=== PATIENT | female | born 1980 | race American Indian/Alaskan Native ===

== ENCOUNTER 2018-10-14 18:13 | Emergency (ER) | payer MEDICAID ==
--- NOTE | 2018-10-14 18:30 | Event Note ---
ED Screening Note Date of service: 10/14/18 Time: 18:26 ED Screening Note: This is a 38 y.o. F. that presents to the ER with vaginal bleeding and . No EMBEDDED SOFTWARE DESIGN ENGINEER care, 15 weeks gestation LMP 07/01/2018, A0 This initial assessment/diagnostic orders/clinical plan/treatment(s) is/are zavala bject to change based on patients health status, clinical progression and re- assessment by fellow clinical providers in the ED. Further treatment and workup at subsequent clinical providers discretion. Patient/guardian urged not to elope from the ED as their condition may be serious if not clinically assessed and managed. Initial orders include: Labs and OB US
[2018-10-14 19:01] LABS: Basophils % (Auto) 0.3 % (0.0-1.8); Eosinophils # (Auto) 0.7 K/mm3 (0.0-0.4); Eosinophils % (Auto) 6.3 % (0.0-4.3); Hemoglobin 11.3 gm/dl (10.1-14.3); Lymphocytes # (Auto) 1.5 K/mm3 (1.2-5.4); Lymphocytes % (Auto) 13.3 % (13.4-35.0); Mean Corpuscular HGB Conc 34 % (30-34); Mean Corpuscular Volume 82 fl (79-97); Monocytes # (Auto) 0.6 K/mm3 (0.0-0.8); Monocytes % (Auto) 5.4 % (0.0-7.3); Platelet Count 269 K/mm3 (140-440); Red Blood Count 4.04 M/mm3 (3.65-5.03); Red Cell Distribution Width 13.7 % (13.2-15.2)
[2018-10-14 19:25] LABS: Bacteria,Urine 1+ /HPF (Negative); Bilirubin,Urine NEG (Negative); Blood,Urine NEG (Negative); Color,Urine Yellow (Yellow); Mucus,Urine FEW /HPF; Protein,Urine <15 mg/dL mg/dL (Negative)
[2018-10-14] MEDS ORDERED: BENADRYL IV ONE (20:09)
[2018-10-14] MEDS ORDERED: NACL 0.9% 1000 ML 1,000 ML IV ONE (20:09)
[2018-10-14] MEDS ORDERED: REGLAN IV ONE (20:09)
--- NOTE | 2018-10-14 20:32 | Emergency Department Report ---
ED HPI - General Chief complaint: Vaginal Bleeding Stated complaint: /BLEEDING/HEADACHE Time Seen by Provider: 10/14/18 18:25 Source: patient Mode of arrival: Ambulatory Limitations: No Limitations - History of Present Illness Initial comments: Patient is a 38-year-old female presents the emergency room with complaints of vaginal spotting that occurred yesterday. she states she also had a mild headache today but it has improved. She denies any vaginal bleeding today. She denies any abdominal pain, dysuria, nausea, vomiting, vision changes, numbness, unilateral weakness. States initially she went to urgent care and was advised to be seen in the emergency room. Patient states her last menstrual cycle was July 01. She has not seen an ICE BAG ASSEMBLER and has received no care. she is not taking a vitamin. she denies any past medical history or allergies to occasions. She states 2 of her children were born premature otherwise she had no complications during her other pregnancies. /P:5/A:0 - Related Data Allergies Allergy/AdvReac Type Severity Reaction Status Date / Time No Known Allergies Allergy Unverified 10/14/18 18:16 ED Review of Systems ROS: Stated complaint: /BLEEDING/HEADACHE Other details as noted in HPI Comment: All other systems reviewed and negative ED Past Medical Hx - Past Medical History Previous Medical History?: Yes Additional medical history: Vaginal delivery x 5 - Surgical History Past Surgical History?: No - Social History Smoking Status: Current Some Day Smoker Substance Use Type: Marijuana ED Physical Exam - General Limitations: No Limitations General appearance: alert, in no apparent distress - Head Head exam: Present: atraumatic, normocephalic - Eye Eye exam: Present: normal appearance - ENT ENT exam: Present: mucous membranes moist - Respiratory Respiratory exam: Present: normal lung sounds bilaterally. Absent: respiratory distress, wheezes, rales, rhonchi, stridor, accessory muscle use, decreased breath sounds, prolonged expiratory - Cardiovascular Cardiovascular Exam: Present: regular rate, normal rhythm, normal heart sounds. Absent: systolic murmur, diastolic murmur, rubs, gallop - GI/Abdominal GI/Abdominal exam: Present: soft, normal bowel sounds. Absent: distended, tenderness, guarding, rebound, rigid - Back Exam Back exam: Absent: CVA tenderness (R), CVA tenderness (L) - Neurological Exam Neurological exam: Present: alert, oriented X3 - Psychiatric Psychiatric exam: Present: normal affect, normal mood - Skin Skin exam: Present: warm, dry, intact ED Course Vital Signs 10/14/18 10/14/18 18:16 22:00 Temperature 98.3 F 98.1 F Pulse Rate 75 76 Respiratory 18 16 Rate Blood Pressure 122/78 Blood Pressure 118/66 [Right] O2 Sat by Pulse 98 100 Oximetry ED Medical Decision Making - Lab Data Result diagrams: 10/14/18 18:37 Lab Results 10/14/18 10/14/18 10/14/18 Range/Units 18:37 18:37 18:37 WBC 11.3 H (4.5-11.0) K/mm3 RBC 4.04 (3.65-5.03) M/mm3 Hgb 11.3 (10.1-14.3) gm/dl Hct 33.0 (30.3-42.9) % MCV 82 (79-97) fl MCH 28 (28-32) pg MCHC 34 (30-34) % RDW 13.7 (13.2-15.2) % Plt Count 269 (140-440) K/mm3 Lymph % (Auto) 13.3 L (13.4-35.0) % [place] % (Auto) 5.4 (0.0-7.3) % Eos % (Auto) 6.3 H (0.0-4.3) % Baso % (Auto) 0.3 (0.0-1.8) % Lymph # 1.5 (1.2-5.4) K/mm3 [place] # 0.6 (0.0-0.8) K/mm3 Eos # 0.7 H (0.0-0.4) K/mm3 Baso # 0.0 (0.0-0.1) K/mm3 Seg Neutrophils % 74.7 H (40.0-70.0) % Seg Neutrophils # 8.5 H (1.8-7.7) K/mm3 HCG, Quant 56318 H (0-4) mIU/mL Urine Color Yellow (Yellow) Urine Turbidity Clear (Clear) Urine pH 7.0 (5.0-7.0) Ur Specific [place] 1.013 (1.003-1.030) Urine Protein <15 mg/dl (Negative) mg/dL Urine Glucose (UA) Neg (Negative) mg/dL Urine Ketones 20 (Negative) mg/dL Urine Blood Neg (Negative) Urine Nitrite Neg (Negative) Urine Bilirubin Neg (Negative) Urine Urobilinogen 2.0 (<2.0) mg/dL Ur Leukocyte Esterase Lg (Negative) Urine WBC (Auto) 1.0 (0.0-6.0) /HPF Urine RBC (Auto) 3.0 (0.0-6.0) /HPF U Epithel Cells (Auto) 7.0 (0-13.0) /HPF Urine Bacteria (Auto) 1+ (Negative) /HPF Urine Mucus Few /HPF Blood Type 10/14/18 Range/Units 18:37 WBC (4.5-11.0) K/mm3 RBC (3.65-5.03) M/mm3 Hgb (10.1-14.3) gm/dl Hct (30.3-42.9) % MCV (79-97) fl MCH (28-32) pg MCHC (30-34) % RDW (13.2-15.2) % Plt Count (140-440) K/mm3 Lymph % (Auto) (13.4-35.0) % [place] % (Auto) (0.0-7.3) % Eos % (Auto) (0.0-4.3) % Baso % (Auto) (0.0-1.8) % Lymph # (1.2-5.4) K/mm3 [place] # (0.0-0.8) K/mm3 Eos # (0.0-0.4) K/mm3 Baso # (0.0-0.1) K/mm3 Seg Neutrophils % (40.0-70.0) % Seg Neutrophils # (1.8-7.7) K/mm3 HCG, Quant (0-4) mIU/mL Urine Color (Yellow) Urine Turbidity (Clear) Urine pH (5.0-7.0) Ur Specific [place] (1.003-1.030) Urine Protein (Negative) mg/dL Urine Glucose (UA) (Negative) mg/dL Urine Ketones (Negative) mg/dL Urine Blood (Negative) Urine Nitrite (Negative) Urine Bilirubin (Negative) Urine Urobilinogen (<2.0) mg/dL Ur Leukocyte Esterase (Negative) Urine WBC (Auto) (0.0-6.0) /HPF Urine RBC (Auto) (0.0-6.0) /HPF U Epithel Cells (Auto) (0-13.0) /HPF Urine Bacteria (Auto) (Negative) /HPF Urine Mucus /HPF Blood Type B POSITIVE - Radiology Data Radiology results: report reviewed ULTRASOUND OBSTETRIC INDICATION / CLINICAL INFORMATION: vaginal bleeding. Clinical Gestational Age (GA): Approximately 15 weeks TECHNIQUE: Transabdominal. COMPARISON: None available. FINDINGS: There is a single intrauterine . Biparietal Diameter = 3.6 cm = 17 weeks, 0 day(s). Head Circumference = 12.8 cm = 16 weeks, 3 day(s). Abdominal Circumference = 10.9 cm = 16 weeks, 5 day(s). Femur Length = 2.2 cm = 16 weeks, 3 day(s). Average Ultrasound Age (AUA) = 16 weeks, 5 day(s). Heart Rate: 153 beats per minute. Position: breech. Cervix: closed. Length in cm (if measured): 3.2 Placenta: posterior and free of the os. Amniotic Fluid Volume: normal Maternal Adnexa: No significant abnormality. IMPRESSION: 1. Single, living intrauterine with estimated sonographic age of 16 weeks, 5 day(s). 2. No significant sonographic abnormality. Signer Name: Beck Canales MD Signed: 10/14/2018 8:27 PM Workstation Name: [id number] Transcribed By: SARA Dictated By: Beck Canales MD Electronically Authenticated By: Beck Canales MD Signed Date/Time: 10/14/182026 - Medical Decision Making Patient is a 38-year-old female presents the emergency room with complaints of vaginal spotting that occurred yesterday. she states she also had a mild headache today but it has improved. She denies any vaginal bleeding today. She denies any abdominal pain, dysuria, nausea, vomiting, vision changes, numbness, unilateral weakness. States initially she went to urgent care and was advised to be seen in the emergency room. Patient states her last menstrual cycle was July 01. She has not seen an ICE BAG ASSEMBLER and has received no care. she is not taking a vitamin. she denies any past medical history or allergies to occasions. She states 2 of her children were born premature otherwise she had no complications during her other pregnancies. /P:5/A:0. vitals are normal. no abd tenderness on exam. labs WNL, [place] [address]. pt is Rh positive. OB US shows 1. Single, living intrauterine with estimated sonographic age of 16 weeks, 5 day(s). 2. No significant sonographic abnormality. pt given 1L of NS, reglan, and benadryl, pt states her RODRIGUEZ completely resolved. Advised patient to please take a daily vitamin. drink plenty of water. Follow-up with an ICE BAG ASSEMBLER to receive care in next 2-3 days. Return to the emergency room for any new or worsening symptoms. - Differential Diagnosis IUP, UTI, threatened , spontaneous , placenta accretia Critical care attestation.: If time is entered above; I have spent that time in minutes in the direct care of this critically ill patient, excluding procedure time. ED Disposition Clinical Impression: Vaginal spotting, Threatened miscarriage Qualifiers: Weeks of gestation: 16 weeks Qualified Code(s): Z3A.16 - 16 weeks gestation of Disposition: DC-01 TO HOME OR SELFCARE Is pt being admited?: No Does the pt Need Aspirin: No Condition: Stable Instructions: Threatened Miscarriage (ED) Additional Instructions: please take a daily vitamin over the counter. drink plenty of water. Follow-up with an ICE BAG ASSEMBLER to receive care in next 2-3 days. Return to the emergency room for any new or worsening symptoms. Referrals: RENZO JOINER MD [Primary Care Provider] - 2-3 Days [facility] [Provider Group] - 2-3 Days [facility] [Outside] - 2-3 Days [facility] [Provider Group] - 2-3 Days BELLO VILLAGOMEZ MD [Staff Physician] - 2-3 Days Forms: Work/School Release Form(ED) Time of Disposition: 21:22 Print Language: UPPER SORBIAN
[2018-10-14 22:23] VITALS: BP 118/66
== END 2018-10-14 22:00 | disposition home or self-care (01) ==
LOC: ED 18:13
DX: O20.0 Threatened abortion (principal); Z3A.16 16 weeks gestation of pregnancy; O99.332 Smoking (tobacco) complicating pregnancy, second trimester; F12.10 Cannabis abuse, uncomplicated
CPT/HCPCS: 36415; 76805; 81001; 84702; 85025; 86900; 86901; 96374; 96375; 99284; J1200; J2765; J7030

== ENCOUNTER 2018-11-13 13:03 | Emergency (ER) | payer MEDICAID ==
[2018-11-13 13:37] VITALS: BP 112/59
[2018-11-13] MEDS ORDERED: PROVENTIL IH ONE (13:37)
[2018-11-13] MEDS ORDERED: SOLU-Medrol IV ONE (13:37)
--- NOTE | 2018-11-13 13:40 | Event Note ---
ED Screening Note Date of service: 11/13/18 Time: 13:34 ED Screening Note: 38 Y O FEMALE AT 21 WEEKS GESTATION PRESENTS FROM LND TO BE EVALUATED FOR COUGH AND SOB PROD COUGH, INTERMITTENT LABORED BREAHTING WITH MILD WHEEZING This initial assessment/diagnostic orders/clinical plan/treatment(s) is/are subject to change based on patients health status, clinical progression and re- assessment by fellow clinical providers in the ED. Further treatment and workup at subsequent clinical providers discretion. Patient/guardian urged not to elope from the ED as their condition may be serious if not clinically assessed and managed. Initial orders include: SOLUMEDROL iv ALBUTEROL TX CXR
--- NOTE | 2018-11-13 13:54 | Emergency Department Report ---
ED Shortness of Breath HPI - General Chief Complaint: Dyspnea/Respdistress Stated Complaint: SOB Time Seen by Provider: 11/13/18 13:34 Source: patient Mode of arrival: Ambulatory Limitations: No Limitations - History of Present Illness Initial Comments: Patient is 38 years old female with history of asthmatic bronchitis. Patient is 21 weeks brought to the emergency room from labor and delivery after patient was cleared by OB. Patient presented to the ER complaining of cough, shortness of breath and wheezing for the last 5 days. Patient described cough as productive for greenish sputum. Patient denied any chest pain, fever or chills. MD Complaint: shortness of breath, cough - Related Data Allergies Allergy/AdvReac Type Severity Reaction Status Date / Time No Known Allergies Allergy Verified 11/13/18 13:08 ED Review of Systems ROS: Stated complaint: SOB Other details as noted in HPI Comment: All other systems reviewed and negative Constitutional: denies: chills, fever Respiratory: cough, shortness of breath, wheezing Cardiovascular: denies: chest pain, palpitations Gastrointestinal: denies: abdominal pain, nausea, vomiting ED Past Medical Hx - Past Medical History Hx Asthma: Yes Additional medical history: Vaginal delivery x 5 - Surgical History Past Surgical History?: No - Social History Smoking Status: Never Smoker Substance Use Type: None ED Physical Exam - General Limitations: No Limitations General appearance: alert, in no apparent distress - Head Head exam: Present: atraumatic, normocephalic, normal inspection - Eye Eye exam: Present: normal appearance - ENT ENT exam: Present: normal exam, normal orophraynx, mucous membranes moist - Neck Neck exam: Present: normal inspection, full ROM. Absent: tenderness, meningismus, lymphadenopathy, thyromegaly - Respiratory Respiratory exam: Present: wheezes. Absent: respiratory distress, rales, rhonchi, stridor, chest wall tenderness, accessory muscle use, decreased breath sounds, prolonged expiratory - Cardiovascular Cardiovascular Exam: Present: regular rate, normal rhythm, normal heart sounds - GI/Abdominal GI/Abdominal exam: Present: soft, normal bowel sounds. Absent: distended, tenderness, guarding, rebound, rigid, organomegaly, pulsatile mass, hernia - Extremities Exam Extremities exam: Present: normal inspection, full ROM, normal capillary refill - Back Exam Back exam: Present: normal inspection, full ROM. Absent: CVA tenderness (R), CVA tenderness (L), muscle spasm, paraspinal tenderness, vertebral tenderness - Neurological Exam Neurological exam: Present: alert, oriented X3, CN II-XII intact, normal gait, reflexes normal - Psychiatric Psychiatric exam: Present: normal mood - Skin Skin exam: Present: warm, intact, normal color ED Course Vital Signs 11/13/18 13:34 Temperature 98.2 F Pulse Rate 94 H Respiratory 22 Rate Blood Pressure 112/59 O2 Sat by Pulse 99 Oximetry ED Medical Decision Making - Radiology Data Radiology results: report reviewed - Medical Decision Making Patient is 38 years old female with history of asthmatic bronchitis. Patient is 21 weeks brought to the emergency room from labor and delivery after patient was cleared by OB. Patient presented to the ER complaining of cough, shortness of breath and wheezing for the last 5 days. Patient described cough as productive for greenish sputum. Patient denied any chest pain, fever or chills. Patient received albuterol. She stated that she feeling better. Chest x-ray is unremarkable. Patient advised to follow-up with her primary care physician in the next 2-3 days and to return to the ER if symptoms are not improved. Critical care attestation.: If time is entered above; I have spent that time in minutes in the direct care of this critically ill patient, excluding procedure time. ED Disposition Clinical Impression: Asthmatic bronchitis Disposition: - TO HOME OR SELFCARE Is pt being admited?: No Condition: Stable Instructions: Acute Bronchitis (ED) Referrals: PRIMARY CARE, [Primary Care Provider] - 3-5 Days
--- NOTE | 2018-11-13 15:05 | XRay Report ---
CHEST 2 VIEWS INDICATION / CLINICAL INFORMATION: Dyspnea. COMPARISON: None available. FINDINGS: SUPPORT DEVICES: None. HEART / MEDIASTINUM: No significant abnormality. LUNGS / PLEURA: No significant pulmonary or pleural abnormality. No pneumothorax. ADDITIONAL FINDINGS: No significant additional findings. IMPRESSION: 1. No acute findings. Signer Name: Reymundo Worley MD Signed: 11/13/2018 3:00 PM Workstation Name: [id number]
== END 2018-11-13 15:28 | disposition home or self-care (01) ==
LOC: ED 13:03
DX: J45.909 Unspecified asthma, uncomplicated (principal)
CPT/HCPCS: 71046; 94640; J2930

== ENCOUNTER 2019-01-28 06:51 | Outpatient (CLI) | payer MEDICAID ==
[2019-01-28 07:14] VITALS: BP 120/66
== END 2019-01-28 10:20 | disposition home or self-care (01) ==
LOC: TRG 06:51
PROVIDERS: ATTEND Obstetrics & Gynecology
DX: O26.893 Other specified pregnancy related conditions, third trimester (principal); M25.569 Pain in unspecified knee; O47.03 False labor before 37 completed weeks of gestation, third trimester; O99.513 Diseases of the respiratory system complicating pregnancy, third trimester; J45.909 Unspecified asthma, uncomplicated; O99.323 Drug use complicating pregnancy, third trimester; F12.90 Cannabis use, unspecified, uncomplicated; Z3A.31 31 weeks gestation of pregnancy; W19.XXXA Unspecified fall, initial encounter; Y93.89 Activity, other specified; Y92.89 Other specified places as the place of occurrence of the external cause; Y99.8 Other external cause status
CPT/HCPCS: 59025

== ENCOUNTER 2019-03-08 18:30 | Inpatient (IN) | payer MEDICAID ==
[2019-03-08] MEDS ORDERED: OXYTOCIN 20 UNIT/1000ML DRIP 20,000 MILLIUNITS/1,000 ML BAG IV ONE (20:05)
[2019-03-08] MEDS ORDERED: LIDOCAINE (2%) 20 MG/1 ML VIAL 20 ML MDV INFILTRATI ONE ×2 (20:06→20:10)
[2019-03-08] MEDS ORDERED: OXYTOCIN 10 UNIT/1 ML INJ ONE (20:06)
[2019-03-08] MEDS ORDERED: LACTATED RINGERS 1,000 ML ONE (20:10)
[2019-03-08] MEDS ORDERED: MINERAL OIL 30 ML ORAL LIQD PO PRN (20:10)
[2019-03-08] MEDS ORDERED: BUTORPHANOL 2 MG/1 ML INJ IV PRN (20:10)
[2019-03-08] MEDS ORDERED: fentaNYL 100 MCG/2 ML INJ IV PRN (20:10)
[2019-03-08] MEDS ORDERED: ePHEDrine SULFATE 50 MG/1 ML INJ IV PRN ×2 (20:10→22:11)
[2019-03-08] MEDS ORDERED: TERBUTALINE 1 MG/1 ML INJ IVP PRN (20:10)
[2019-03-08] MEDS ORDERED: TERBUTALINE 1 MG/1 ML INJ SUB-Q PRN (20:10)
[2019-03-08 20:19] LABS: Hemoglobin 9.6 gm/dl (10.1-14.3); Mean Corpuscular HGB Conc 33 % (30-34); Mean Corpuscular Volume 78 fl (79-97); Platelet Count 338 K/mm3 (140-440); Red Blood Count 3.71 M/mm3 (3.65-5.03); Red Cell Distribution Width 15.7 % (13.2-15.2)
[2019-03-08 20:24] LABS: Bacteria,Urine 1+ /HPF (Negative); Bilirubin,Urine NEG (Negative); Blood,Urine NEG (Negative); Color,Urine Yellow (Yellow); Mucus,Urine 2+ /HPF; Urobilinogen,Urine < 2.0 mg/dL (<2.0)
--- NOTE | 2019-03-08 20:29 | History and Physical Report ---
History of Present Illness Date of examination: 03/08/19 Date of admission: 03/08/19 18:31 Chief complaint: labor History of present illness: PT is here with c/o ctxs. No LOF. Light VB noted. Good FM. Uncomplicated preg per pt except anemia. not available. GBS neg per pt. Past History Past Medical History: other (severe eczema) Past Surgical History: no surgical history Social history: no significant social history - Obstetrical History Expected Date of Delivery: 03/26/19 Actual Gestation: 37 Week(s) 3 Day(s) : 6 Para: 5 Hx # Term Pregnancies: 3 Number of Pregnancies: 2 Number of Living Children: 5 Medications and Allergies Allergies Allergy/AdvReac Type Severity Reaction Status Date / Time Penicillins Allergy Hives Verified 03/06/19 01:16 Home Medications Medication Instructions Recorded Confirmed Last Taken Type Ferrous Sulfate [Iron 325 MG] 325 mg PO BID 03/08/19 03/08/19 03/06/19 History Vit-Fe Fumar-FA [ 1 tab PO DAILY 03/08/19 03/08/19 03/06/19 History Vitamin] Active Meds: Active Medications Butorphanol Tartrate (Stadol) 2 mg IV Q2H PRN PRN Reason: Pain , Severe (7-10) Ephedrine Sulfate (Ephedrine Sulfate) 10 mg IV Q2M PRN PRN Reason: Hypotension Fentanyl (Sublimaze) 100 mcg IV Q2H PRN PRN Reason: Labor Pain Oxytocin/Sodium Chloride (Pitocin/Ns 20 Unit/1000ml Drip) 20 units in 1,000 mls @ 125 mls/hr IV DIRECT PRICILA Lactated Ringer's (Lactated Ringers) 1,000 mls @ 125 mls/hr IV DIRECT PRICILA Mineral Oil (Mineral Oil) 30 ml PO QHS PRN PRN Reason: Constipation Terbutaline Sulfate (Brethine) 0.25 mg SUB-Q ONCE PRN PRN Reason: Hyperstimulation/Hypertonicity Terbutaline Sulfate (Brethine) 0.25 mg IVP ONCE PRN PRN Reason: Hyperstimulation/Hypertonicity Review of Systems All systems: negative (except HPI) - Vital Signs Vital signs: Vital Signs Pulse BP 85 129/69 03/08/19 18:59 03/08/19 18:59 Temp Pulse Resp BP Pulse Ox 98.3 F 85 18 129/69 03/08/19 19:22 03/08/19 19:22 03/08/19 19:22 03/08/19 19:22 - Physical Exam Abdomen: Positive: normal appearance, soft. Negative: tenderness Genitourinary (Female): Positive: normal external genitalia - Obstetrical FHR: category 1 Uterine Contraction Monitor Mode: External Cervical Dilatation: 6 Cervical Effacement Percentage: 80 station: -2 Results Result Diagrams: 03/08/19 19:52 Abnormal lab results 03/08/19 03/08/19 Range/Units 19:52 19:52 Hgb 9.6 L (10.1-14.3) gm/dl Hct 29.0 L (30.3-42.9) % MCV 78 L (79-97) fl MCH 26 L (28-32) pg RDW 15.7 H (13.2-15.2) % Urine WBC (Auto) 54.0 H (0.0-6.0) /HPF U Epithel Cells (Auto) 22.0 H (0-13.0) /HPF All other labs normal. Assessment and Plan - Patient Problems (1) Active labor at term Current Visit: Yes Status: Acute Plan to address problem: PT just AROM'd clear. Expectant care.
[2019-03-08 20:39] LABS: Amphetamine Screen,Urine PRESUMPTIVE NEGATIVE; Benzodiazepines Screen,Urine PRESUMPTIVE NEGATIVE; Cocaine Screen,Urine PRESUMPTIVE NEGATIVE; Methadone Screen,Urine PRESUMPTIVE NEGATIVE; Opiate Screen,Urine PRESUMPTIVE NEGATIVE
[2019-03-08] MEDS ORDERED: LIDOCAINE (1%) 10 MG/1 ML VIAL 20 ML MDV INFILTRATI ONE (20:45)
[2019-03-08] MEDS ORDERED: OXYTOCIN 10 UNIT/1 ML INJ IM ONE (20:46)
[2019-03-08] MEDS ORDERED: LACTATED RINGERS 1,000 ML IV SCH (21:00)
[2019-03-08] MEDS ORDERED: OXYTOCIN 20 UNIT/1000ML DRIP 20 UNITS/1,000 ML BAG IV SCH (21:00)
[2019-03-08 21:14] LABS: Cannabinoid Screen,Urine PRESUMPTIVE POSITIVE
[2019-03-08] MEDS ORDERED: DEXMEDETOMIDINE 200 MCG/2 ML VIAL IV ONE (21:42)
[2019-03-08] MEDS ORDERED: NALOXONE 2 MG/2 ML INJ IV PRN (22:11)
--- NOTE | 2019-03-08 22:11 | Anesthesia Consultation ---
Anesthesia Consult and Med Hx Date of service: 03/08/19 - Airway Anesthetic Teeth Evaluation: Good ROM Head & Neck: Adequate Mental/Hyoid Distance: Adequate Mallampati Class: Class II Intubation Access Assessment: Good - Pulmonary Exam CTA: Yes - Cardiac Exam Cardiac Exam: RRR - Pre-Operative Health Status ASA Pre-Surgery Classification: ASA2, Emergency Proposed Anesthetic Plan: Epidural, Spinal (eczema) - Pulmonary Hx Asthma: No COPD: No Hx Pneumonia: No - Cardiovascular System Hx Hypertension: No - Central Nervous System Hx Seizures: No Hx Psychiatric Problems: No - Endocrine Hx Renal Disease: No Hx End Stage Renal Disease: No Hx Hypothyroidism: No Hx Hyperthyroidism: No - Hematic Hx Anemia: Yes Hx Sickle Cell Disease: No - Other Systems Hx Alcohol Use: No
[2019-03-08] MEDS ORDERED: OXYTOCIN DRIP 30,000 MILLIUNITS/500 ML BAG IV ONE (22:47)
[2019-03-08] MEDS ORDERED: fentaNYL-BUPIV 2 MCG/ML-0.125% 200 MCG/100 ML BAG EPIDURAL SCH (23:00)
[2019-03-09] MEDS ORDERED: WITCH HAZEL/ GLYCERIN PAD TP PRN (00:39)
[2019-03-09] MEDS ORDERED: PROMETHAZINE 25 MG RECT SUPP PR PRN (00:39)
[2019-03-09] MEDS ORDERED: ONDANSETRON 4 MG/2 ML INJ IV PRN (00:39)
[2019-03-09] MEDS ORDERED: HYDROCORTISONE 25 MG RECTAL SUPP PR PRN (00:39)
[2019-03-09] MEDS ORDERED: ACETAMINOPHEN 325 MG TAB PO PRN (00:39)
[2019-03-09] MEDS ORDERED: LANOLIN/ZINC/DIMETHICONE (LANSINOH) 7 GM TP PRN ×2 (00:39)
[2019-03-09] MEDS ORDERED: PROMETHAZINE 25 MG TAB PO PRN (00:39)
[2019-03-09] MEDS ORDERED: BENZOCAINE/MENTHOL 20/0.5% TOP SPRAY 56 GM TP PRN (00:39)
[2019-03-09] MEDS ORDERED: MAGNESIUM HYDROXIDE (MOM) ORAL LIQD UDC PO PRN (00:39)
--- NOTE | 2019-03-09 00:39 | Procedure Note ---
OB Delivery Note - Delivery Date of Delivery: 03/09/19 Surgeon: OBDULIA RANDHAWA Estimated blood loss: 200cc - Vaginal Delivery position: OA Intrapartum events: none Delivery induction: none Delivery augmentation: rupture of membranes, pitocin Delivery monitor: external FHT Route of delivery: Delivery placenta: spontaneous Delivery cord: 3 umbilical vessels Episiotomy: none Delivery laceration: none Anesthesia: epidural Delivery comments: Anterior shoulder delivered without difficulty. Baby bulb suctioned at the perineum and again after delivery. Delayed cord clamping was done. After the cord was cut baby to the mother and then the warmer. No lacerations. Good hemostasis noted. Placenta delivered spontaneously. Cord blood obtained prior to that. Mother and baby are stable. - A at 1 minute: 8 at 5 minutes: 9 Gender: Female
[2019-03-09] MEDS ORDERED: OXYTOCIN 20 UNIT/1000ML DRIP 20 UNITS/1,000 ML BAG IV SCH (01:00)
[2019-03-09] MEDS: IBUPROFEN 600 MG TAB PO SCH ×4 (03:34→23:05)
[2019-03-09] MEDS: DOCUSATE SODIUM 100 MG CAP PO PRN ×2 (09:50→21:58)
[2019-03-09 16:40] LABS: Hematocrit 29.2 % (30.3-42.9); Hemoglobin 9.6 gm/dl (10.1-14.3)
[2019-03-10] MEDS: diphenhydrAMINE 25 MG CAP PO PRN (01:28)
[2019-03-10] MEDS: IBUPROFEN 600 MG TAB PO SCH ×4 (05:17→23:39)
[2019-03-10] MEDS: FERROUS SULFATE 325 MG TAB PO SCH ×2 (12:18→21:37)
[2019-03-10] MEDS: DOCUSATE SODIUM 100 MG CAP PO PRN (12:18)
--- NOTE | 2019-03-10 14:22 | Progress Note ---
Assessment and Plan A: day 1 S/P . Anemia secondary to and blood loss. P: Supplement with iron. Continue current management. Subjective - Subjective Date of service: 03/10/19 Principal diagnosis: day 1 S/P Interval history: day 1 S/P . Doing well. Patient reports small amount of lochia. Patient is voiding without difficulty, ambulating well, tolerating a regular diet. Patient denies headache, chest pain, cough, shortness of breath, dizziness, abdominal pain, leg pain, heavy bleeding, nausea or vomiting. Patient has anemia and iron supplements have been ordered. Patient reports: appetite normal, voiding normally, pain well controlled, flatus, ambulating normally, no dizzy ambulation, no nauseated [place]: doing well Objective - Vital Signs Latest vital signs: Vital Signs Temp Pulse Resp BP Pulse Ox 03/10/19 09:38 97.9 F 84 18 116/65 98 03/10/19 01:01 97.8 F 78 20 131/73 100 03/09/19 16:45 98.1 F 73 18 132/74 98 Intake and Output 03/09/19 03/10/19 03/10/19 23:59 07:59 15:59 Intake Total 1920 480 240 Balance 1920 480 240 Intake: Oral 1080 480 240 Intake, Free Water 840 Other: Total, Intake Amount 240 240 240 # Voids Void 2 1 1 - Exam Cardiovascular: Present: Regular rate, Normal S1, Normal S2 Lungs: Present: Clear to auscultation Abdomen: Present: normal appearance, soft, normal bowel sounds. Absent: distention, tenderness, guarding, rigidity Uterus: Present: normal, firm, fundal height below umbilicus. Absent: bogginess , tenderness Extremities: Present: normal. Absent: tenderness, edema - Labs Labs: Abnormal lab results 03/09/19 Range/Units 16:21 Hgb 9.6 L (10.1-14.3) gm/dl Hct 29.2 L (30.3-42.9) %
[2019-03-11] MEDS: diphenhydrAMINE 25 MG CAP PO PRN (01:27)
[2019-03-11] MEDS: IBUPROFEN 600 MG TAB PO SCH ×2 (05:50→14:08)
[2019-03-11] MEDS: FERROUS SULFATE 325 MG TAB PO SCH (10:58)
--- NOTE | 2019-03-11 11:10 | Progress Note ---
Assessment and Plan A: day 2 S/P spontaneous vaginal delivery. Anemia secondary to and blood loss. P: Discharge patient home today. Discussed with patient discharge instructions and warning signs. Advised patient to continue taking vitamin and iron supplements at home (patient states she has plenty of both at home). Advised patient to avoid intercourse, lifting and heavy housework, driving. Advised patient to call the office ([facility]) tomorrow morning and obtain an appointment for 6 week exam at the office. Patient voiced understanding of all instructions. Subjective - Subjective Date of service: 03/11/19 Principal diagnosis: day 2 S/P Interval history: day 2 S/P . Doing well. Patient desires discharge home today. Patient reports small amount of lochia. Patient is voiding without difficulty, ambulating well, tolerating a regular diet, passing gas. Patient denies headache, chest pain, cough, shortness of breath, dizziness, fatigue, abdominal pain, leg pain, heavy bleeding, nausea or vomiting. Patient has anemia and has been tolerating oral iron supplementation. Patient reports: appetite normal, voiding normally, pain well controlled, flatus, ambulating normally, no dizzy ambulation, no nauseated : doing well Objective - Vital Signs Latest vital signs: Vital Signs Temp Pulse Resp BP Pulse Ox 03/11/19 08:18 97.8 F 69 18 123/66 99 03/11/19 01:47 98.7 F 85 20 128/80 99 03/10/19 16:32 97.7 F 66 18 136/77 100 Intake and Output 03/10/19 03/11/19 03/11/19 23:59 07:59 15:59 Intake Total 1440 480 240 Balance 1440 480 240 Intake: Oral 720 480 240 Intake, Free Water 720 Other: Total, Intake Amount 240 240 240 # Voids Void 5 1 1 # Bowel Movements 1 - Exam Cardiovascular: Present: Regular rate, Normal S1, Normal S2, No murmurs Lungs: Present: Clear to auscultation Abdomen: Present: normal appearance, soft, normal bowel sounds. Absent: distention, tenderness, guarding, rigidity Uterus: Present: normal, firm, fundal height below umbilicus. Absent: bogginess, tenderness Extremities: Present: normal. Absent: tenderness
--- NOTE | 2019-03-11 11:12 | Discharge Summary ---
Providers - Providers Date of Admission: 03/08/19 18:31 Date of discharge: 03/11/19 Attending physician: OBDULAI RANDHAWA 03/11/19 09:14 Consult to Case Management [CONS] Routine Services Needed at Discharge: Other Notified:: CHANTEL Phone number called:: [phone] Was contact made?: Yes If yes, spoke with:: [place] Time called:: 09:11 Additional Physician Instructions: Mom UDS + THC; baby UDS Negative Primary care physician: OBDULIA RANDHAWA Hospitalization Reason for admission: active labor Delivery: Episiotomy: none Laceration: none Other procedures: none complications: none Discharge diagnosis: IUP at term delivered [place] baby: female Pertinent studies: Labs Hospital course: Normal hospital course. Condition at discharge: Good Disposition: DC-01 TO HOME OR SELFCARE - Discharge Diagnoses (1) Term delivered Status: Acute (2) Anemia due to blood loss Status: Acute Plan - Provider Discharge Summary Activity: routine, no sex for 6 weeks, no heavy lifting 4 weeks, no strenuous exercise Diet: routine Instructions: routine Additional instructions: Continue taking your vitamin and iron supplements at home. Call your doctor immediately for: * Fever > 100.5 * Heavy vaginal bleeding ( >1 pad per hour) * Severe persistent headache * Shortness of breath * Reddened, hot, painful area to leg or breast - Follow up plan Follow up: OBDULIA RANDHAWA MD [Primary Care Provider] - 6 Weeks
[2019-03-11 18:29] VITALS: BP 130/60
== END 2019-03-11 17:40 | disposition home or self-care (01) | DRG 775 ==
LOC: TRG 18:30 → LD 18:31 → OBSVTOIN 18:31 → TRG 18:31 → OB 03-09 02:55
PROVIDERS: ADMIT Obstetrics & Gynecology; ATTEND Obstetrics & Gynecology
PROC: 10907ZC Drainage of Amniotic Fluid, Therapeutic from Products of Conception, Via Natural or Artificial Opening (ICD-10-PCS; 2019-03-08)
PROC: 10E0XZZ Delivery of Products of Conception, External Approach (ICD-10-PCS; principal; 2019-03-09)
PROC: 3E0R3BZ Introduction of Anesthetic Agent into Spinal Canal, Percutaneous Approach (ICD-10-PCS; 2019-03-09)
PROC: 00HU33Z Insertion of Infusion Device into Spinal Canal, Percutaneous Approach (ICD-10-PCS; 2019-03-09)
DX: O99.02 Anemia complicating childbirth (principal); D62 Acute posthemorrhagic anemia; Z37.0 Single live birth; Z88.0 Allergy status to penicillin; Z3A.37 37 weeks gestation of pregnancy
CPT/HCPCS: 36415; 80307; 81001; 85014; 85018; 85027; 86592; 86706; 86762; 86850; 86900; 86901; 87086; 87806; 96360; G0378; J2590; J3490; J7120

== ENCOUNTER 2021-02-15 11:32 | Emergency (ER) | payer MEDICAID ==
[2021-02-15] MEDS ORDERED: KETOROLAC 30 MG/1 ML INJ IV ONE (11:57)
[2021-02-15] MEDS ORDERED: SODIUM CHLORIDE 0.9% 1000 ML 1,000 ML IV ONE (11:57)
[2021-02-15] MEDS ORDERED: ONDANSETRON 4 MG/2 ML INJ IV ONE (11:57)
--- NOTE | 2021-02-15 11:59 | Emergency Department Report ---
ED Female HPI - General Chief complaint: Vaginal Bleeding Stated complaint: MENSTRUAL CRAMPS/UTI Time Seen by Provider: 02/15/21 11:51 Source: patient, EMS Mode of arrival: Wheelchair Limitations: No Limitations - History of Present Illness Initial comments: Patient is a 40-year-old female presents emergency room planes of lower abdominal cramping that began last night. Patient states that her menstrual cycle began last night. She states that she also began having nausea and vomiting. She states that she is having difficulty tolerating p.o. intake. Patient states that she was diagnosed with a UTI by her primary care doctor and has been on antibiotics for 3 days. She denies any fever, diarrhea, hematochezia, melena, hematemesis. Allergy to penicillin. She states this is a normal time for her cycle. - Related Data Home Medications Medication Instructions Recorded Confirmed Last Taken Ferrous Sulfate [Iron 325 MG] 325 mg PO BID 03/08/19 02/15/21 03/06/19 Vit-Fe Fumar-FA [ 1 tab PO DAILY 03/08/19 02/15/21 03/06/19 Vitamin] Previous Rx's Medication Instructions Recorded Last Taken Type Naproxen 375 mg PO BID PRN #14 tablet 02/15/21 Unknown Rx Ondansetron [Zofran Odt] 4 mg PO Q8HR PRN #10 tab.rapdis 02/15/21 Unknown Rx Allergies Allergy/AdvReac Type Severity Reaction Status Date / Time Penicillins Allergy Hives Verified 02/15/21 11:57 ED Review of Systems ROS: Stated complaint: MENSTRUAL CRAMPS/UTI Other details as noted in HPI Comment: All other systems reviewed and negative ED Past Medical Hx - Past Medical History Hx Hypertension: No Hx Congestive Heart Failure: No Hx Diabetes: No Hx Deep Vein Thrombosis: No Hx Renal Disease: No Hx Sickle Cell Disease: No Hx Seizures: No Hx Asthma: No Hx COPD: No Hx HIV: No Additional medical history: Vaginal delivery x 5 - Social History Smoking Status: Never Smoker - Medications Home Medications: Home Medications Medication Instructions Recorded Confirmed Last Taken Type Ferrous Sulfate [Iron 325 MG] 325 mg PO BID 03/08/19 02/15/21 03/06/19 History Vit-Fe Fumar-FA [ 1 tab PO DAILY 03/08/19 02/15/21 03/06/19 History Vitamin] Naproxen 375 mg PO BID PRN #14 tablet 02/15/21 Unknown Rx Ondansetron [Zofran Odt] 4 mg PO Q8HR PRN #10 tab.rapdis 02/15/21 Unknown Rx ED Physical Exam - General Limitations: No Limitations General appearance: alert, in no apparent distress - Head Head exam: Present: atraumatic, normocephalic - Eye Eye exam: Present: normal appearance - Respiratory Respiratory exam: Present: normal lung sounds bilaterally. Absent: respiratory distress, wheezes, rales, rhonchi, stridor, chest wall tenderness, accessory muscle use, decreased breath sounds, prolonged expiratory - Cardiovascular Cardiovascular Exam: Present: regular rate, normal rhythm, normal heart sounds. Absent: systolic murmur, diastolic murmur, rubs, gallop - GI/Abdominal GI/Abdominal exam: Present: soft, normal bowel sounds. Absent: distended, tenderness, guarding, rebound, rigid - Neurological Exam Neurological exam: Present: alert, oriented X3 - Psychiatric Psychiatric exam: Present: normal affect, normal mood - Skin Skin exam: Present: warm, dry, intact ED Course Vital Signs 02/15/21 02/15/21 02/15/21 11:34 11:58 13:32 Temperature 97.6 F 97.7 F 98.1 F Pulse Rate 81 76 67 Respiratory 17 17 16 Rate Blood Pressure 111/67 Blood Pressure 108/60 111/67 125/81 [Left] O2 Sat by Pulse 97 97 100 Oximetry ED Medical Decision Making - Lab Data Result diagrams: 02/15/21 12:21 02/15/21 12:21 Lab Results 02/15/21 02/15/21 02/15/21 Range/Units 12:21 12:21 Unknown WBC 9.3 (4.5-11.0) K/mm3 RBC 4.46 (3.65-5.03) M/mm3 Hgb 11.4 (10.1-14.3) gm/dl Hct 36.2 (30.3-42.9) % MCV 81 (79-97) fl MCH 26 L (28-32) pg MCHC 32 (30-34) % RDW 14.3 (13.2-15.2) % Plt Count 288 (140-440) K/mm3 Lymph % (Auto) 8.0 L (13.4-35.0) % Coles % (Auto) 5.3 (0.0-7.3) % Eos % (Auto) 0.0 (0.0-4.3) % Baso % (Auto) 0.4 (0.0-1.8) % Lymph # (Auto) 0.7 L (1.2-5.4) K/mm3 Coles # (Auto) 0.5 (0.0-0.8) K/mm3 Eos # (Auto) 0.0 (0.0-0.4) K/mm3 Baso # (Auto) 0.0 (0.0-0.1) K/mm3 Seg Neutrophils % 86.3 H (40.0-70.0) % Seg Neutrophils # 8.0 H (1.8-7.7) K/mm3 Sodium 143 (137-145) mmol/L Potassium 4.0 (3.6-5.0) mmol/L Chloride 103.3 (98-107) mmol/L Carbon Dioxide 25 (22-30) mmol/L Anion Gap 19 mmol/L BUN 7 (7-17) mg/dL Creatinine 0.6 (0.6-1.2) mg/dL Estimated GFR > 60 ml/min BUN/Creatinine Ratio 12 % Glucose 102 H (65-100) mg/dL Calcium 9.1 (8.4-10.2) mg/dL Total Bilirubin 0.30 (0.1-1.2) mg/dL AST 9 (5-40) units/L ALT 6 L (7-56) units/L Alkaline Phosphatase 51 (35-129) units/L Total Protein 7.1 (6.3-8.2) g/dL Albumin 4.8 (3.9-5) g/dL Albumin/Globulin Ratio 2.1 % Lipase 25 (13-60) units/L Urine Color Yellow (Yellow) Urine Turbidity Clear (Clear) Urine pH 8.0 H (5.0-7.0) Ur Specific [place] 1.023 (1.003-1.030) Urine Protein 100 mg/dl (Negative) mg/dL Urine Glucose (UA) 50 (Negative) mg/dL Urine Ketones 20 (Negative) mg/dL Urine Blood Mod (Negative) Urine Nitrite Neg (Negative) Urine Bilirubin Neg (Negative) Urine Urobilinogen < 2.0 (<2.0) mg/dL Ur Leukocyte Esterase Tr (Negative) Urine WBC (Auto) 4.0 (0.0-6.0) /HPF Urine RBC (Auto) 175.0 (0.0-6.0) /HPF U Epithel Cells (Auto) 4.0 (0-13.0) /HPF Urine Mucus 1+ /HPF Urine HCG, Qual Negative (Negative) - Medical Decision Making Patient is a 40-year-old female presents emergency room planes of lower abdominal cramping that began last night. Patient states that her menstrual cycle began last night. She states that she also began having nausea and vomiting. She states that she is having difficulty tolerating p.o. intake. Patient states that she was diagnosed with a UTI by her primary care doctor and has been on antibiotics for 3 days. She denies any fever, diarrhea, hematochezia, melena, hematemesis. Allergy to penicillin. She states this is a normal time for her cycle. Vitals are normal. No abdominal tenderness on exam, no guarding, no rebound, no rigidity, normal bowel sounds, no peritoneal signs. Labs are stable. UA without evidence of UTI. Urine is negative. Patient given medications while in the emergency department with improvement of symptoms. Patient given prescription for medications. Advised patient Please take medication as prescribed as needed. Increase your water intake over the next several days. Eat a bland liquid diet and slowly advance your diet as tolerated. Follow-up with a primary care doctor. Follow-up with [facility]. Return to emergency room for any new or worsening symptoms. Critical care attestation.: If time is entered above; I have spent that time in minutes in the direct care of this critically ill patient, excluding procedure time. ED Disposition Clinical Impression: Abdominal cramping Nausea & vomiting Qualifiers: Vomiting type: unspecified Qualified Code(s): R11.2 - Nausea with vomiting, unspecified Disposition: 01 HOME / SELF CARE / HOMELESS Is pt being admited?: No Does the pt Need Aspirin: No Condition: Stable Instructions: Abdominal Pain, Adult, [id number], Nausea and Vomiting, Adult Additional Instructions: Please take medication as prescribed as needed. Increase your water intake over the next several days. Eat a bland liquid diet and slowly advance your diet as tolerated. Follow-up with a primary care doctor. Follow-up with [facility]. Return to emergency room for any new or worsening symptoms. Prescriptions: Naproxen 375 mg PO BID PRN #14 tablet PRN Reason: pain Ondansetron [Zofran Odt] 4 mg PO Q8HR PRN #10 tab.rapdis PRN Reason: nausea/vomiting Referrals: PRIMARY CARE, [Primary Care Provider] - 2-3 Days [facility] [Provider Group] - 2-3 Days [facility] [Provider Group] - 2-3 Days Time of Disposition: 13:37 Print Language: TELUGU
[2021-02-15 12:22] LABS: Bilirubin,Urine NEG (Negative); Blood,Urine MOD (Negative); Color,Urine Yellow (Yellow); Mucus,Urine 1+ /HPF; Urobilinogen,Urine < 2.0 mg/dL (<2.0)
[2021-02-15 12:23] LABS: HCG Qualitative,Urine Negative (Negative)
[2021-02-15] MEDS ORDERED: MORPHINE 4 MG/1 ML INJ IV ONE (12:57)
[2021-02-15 13:20] LABS: Basophils % (Auto) 0.4 % (0.0-1.8); Hematocrit 36.2 % (30.3-42.9); Hemoglobin 11.4 gm/dl (10.1-14.3); Lymphocytes # (Auto) 0.7 K/mm3 (1.2-5.4); Mean Corpuscular HGB Conc 32 % (30-34); Mean Corpuscular Volume 81 fl (79-97); Monocytes # (Auto) 0.5 K/mm3 (0.0-0.8); Monocytes % (Auto) 5.3 % (0.0-7.3); Platelet Count 288 K/mm3 (140-440); Red Blood Count 4.46 M/mm3 (3.65-5.03); Red Cell Distribution Width 14.3 % (13.2-15.2)
[2021-02-15 13:33] VITALS: BP 125/81
[2021-02-15 13:35] LABS: Alanine Aminotransferase 6 units/L (7-56); Albumin 4.8 g/dL (3.9-5); BUN/Creatinine Ratio 12; Blood Urea Nitrogen 7 mg/dL (7-17); Calcium 9.1 mg/dL (8.4-10.2); Hemolysis Index 5
== END 2021-02-15 13:45 | disposition home or self-care (01) ==
LOC: ED 11:32
DX: R10.30 Lower abdominal pain, unspecified (principal); R11.2 Nausea with vomiting, unspecified; Z88.0 Allergy status to penicillin
CPT/HCPCS: 36415; 80053; 81001; 81025; 83690; 85025; 96361; 96374; 96375; 99284; J1885; J2270; J2405; J7030; Q0162